=== PATIENT | female | born 1975 | race Caucasian/White ===

== ENCOUNTER 2022-08-15 08:29 | Emergency (ER) | payer OTHER, SELFPAY ==
[2022-08-15 08:40] VITALS: BP 115/67; PULSE 78; RESP 16; TEMP 36.9; O2SAT 100
--- NOTE | 2022-08-15 09:05 | ED.GENADULT ---
HPI - General Adult General Chief complaint: Upper Respiratory Infection Stated complaint: Congestion/Cough Source: patient Mode of arrival: ambulatory Limitations: no limitations History of Present Illness HPI narrative: Patient presents for evaluation of sick symptoms for last 3 days. Symptoms include clear rhinorrhea, sinus congestion, headache, ear pain and a mild cough. No fever, chills, nausea, vomiting, diarrhea, shortness of breath. She tried taking mucinex for her symptoms but it caused sleep disturbance. She tried sudafed but it only helps for about two hours. Her recently had similar symptoms but he did not go in for medical evaluation. He works as a teacher and pt states that several children at his school have been sick. Denies tobacco use. History of COVID infection x 4 episodes. Related Data Allergies Allergy/AdvReac Type Severity Reaction Status Date / Time No Known Allergies Allergy Verified 08/15/22 08:40 Review of Systems Review of Systems: CONSTITUTIONAL: Denies fever, chills, or sweats. EYES: Denies visual changes, redness, or discharge. ENT: Reports sinus congestion, clear rhinorrhea and ear discomfort. CARDIOVASCULAR: Denies chest pain, palpitations, or edema. RESPIRATORY:Reports cough. Denies dyspnea. GASTROINTESTINAL: Denies abdominal pain, nausea, vomiting, or diarrhea. GENITOURINARY: Denies dysuria or hematuria. SKIN: Denies rash or itching. MUSCULOSKELETAL: Denies back pain, joint pain, or myalgia. NEUROLOGIC: Reports headache. Denies numbness, dizziness, or weakness. PSYCHIATRIC: Denies anxiety or depression. [facility] Past Medical History Medical History No pertinent past medical history Surgical History Surgical History (Updated 08/15/22 @ 09:08 by JAX Aviles, ) No pertinent past surgical history Family History Family History Mother Family history non-contributory Social History Social History Smoking status: Never smoker Substance use: never Living arrangements: with family Gender identity (if verbalized by the patient): Female Sexual Orientation (if Verbalized by the Patient): Straight or Heterosexual Spiritual care concerns: No Exam Narrative: GENERAL: Well-appearing, well-nourished, and in no acute distress. HEAD: Normocephalic, atraumatic. EYES: PERRLA and EOMI. ENT: Nares clear, no rhinorrhea or epistaxis. Mucous membranes moist. Oropharynx without tonsillar hypertrophy exudate or other lesions. Bilateral TMs pearly thacker nonbulging NECK: Supple. No adenopathy or masses. No carotid bruits or JVD CHEST: Clear to auscultation. No respiratory distress. No wheezes rales or rhonchi HEART: Regular rate and rhythm. No murmur heard. Normal peripheral pulses. ABDOMEN: Soft, nontender, nondistended, normal active bowel sounds. EXTREMITIES: Normal range of motion. No edema. SKIN: Warm, dry, no rash. NEURO: No focal deficits. Alert and oriented x3. PSYCH: Normal mood and affect. Course Course Emergency Course: This is a 46-year-old female who presented for evaluation of upper respiratory symptoms. No adventitious lung sounds or fever to suggest pneumonia. No purulent drainage from the nares to suggest ABRS. Likely viral in origin. Will dc with tessalon. Flonase may help. She recently purchased flonase but has not started taking it yet. Follow up with primary provider. Go to ER for worsening symptoms. Pt in agreement with plan of care. Level of Care: Express Care Visit Vital Signs Vital signs: Vital Signs Temperature 36.9 C 08/15/22 08:40 Pulse Rate 78 08/15/22 08:40 Respiratory Rate 16 08/15/22 08:40 Blood Pressure 115/67 08/15/22 08:40 Pulse Oximetry 100 08/15/22 08:40 Oxygen Delivery Room Air 08/15/22 08:40 Temperature 36.9
== END 2022-08-15 09:07 | disposition home or self-care (01) ==
PROVIDERS: Emergency Provider Nurse Practitioner; PCP Emergency Medicine
DX: B34.9 Viral infection, unspecified (principal)
CPT/HCPCS: 99203; G0463

== ENCOUNTER 2023-08-01 15:35 | Emergency (ER) | payer OTHER, SELFPAY ==
--- NOTE | ~2023-08-01 | XR_ITS ---
XR lumbar spine 2-3V 08/01/2023 16:08 Indication: Back pain after sleeping on couch. Procedure: 3 views lumbar spine Comparison: No prior studies for comparison. Findings: Vertebral body heights are maintained. Mild levocurvature of the lumbar spine. No significa nt disc narrowing. No evidence for spondylolisthesis. No acute fracture or traumatic malalignment. Th ere is mild facet degenerative change at L4-5 and L5-S1. There are pelvic phleboliths. Sacral foramen are symmetric. Impression: 1: Mild lumbar spondylosis. Reviewed, dictated and finalized at location A. Impression: 1: Mild lumbar spondylosis.
[2023-08-01 15:41] VITALS: BP 118/74; PULSE 81; RESP 16; TEMP 37; O2SAT 100
--- NOTE | 2023-08-01 16:34 | ED.BACK ---
HPI - Back Pain/Injury General Chief Complaint: Back Pain/Injury Stated Complaint: back pain Time Seen by Provider: 08/01/23 16:34 Source: patient, RN notes reviewed and old records reviewed Mode of arrival: ambulatory Limitations: no limitations History of Present Illness HPI Narrative: 47 year old female who presents to [facility] care with complaints of lumbar back pain since Sunday morning when she woke up. Patient reports that she slept on couch Sunday night with elderly dog and woke up in pain. Patient reports that she has tried heating pad, cold therapy, tens unit, Ibuprofen and also Epsom salt without relief. Patient reports that pain is intense with movement especially to lower back with no radiation of pain down legs. Patient reports no difficulty passing urine or stools, denies any saddle paraesthesia. MD elicited complaint: back pain Onset (ago): day(s) (3) Pain scale (0-10): 10 Quality: sharp and aching Exacerbating factors: movement Treatments prior to arrival: cold therapy, heat therapy, NSAIDS and other (epsom salt, Tens unit) Related Data Allergies Allergy/AdvReac Type Severity Reaction Status Date / Time No Known Allergies Allergy Verified 08/15/22 08:40 Review of Systems Review of Systems: CONSTITUTIONAL: Denies fever, chills, or sweats. CARDIOVASCULAR: Denies chest pain, palpitations, or edema. RESPIRATORY: Denies cough or dyspnea. GASTROINTESTINAL: Denies abdominal pain, nausea, vomiting, or diarrhea. GENITOURINARY: Denies dysuria or hematuria. SKIN: Denies rash or itching. MUSCULOSKELETAL: Reports back pain in lower back increased intensity with movement, NEUROLOGIC: Denies headache, numbness, or weakness. All systems reviewed & are unremarkable except as noted in HPI and below PMFSH Past Medical History Medical History No pertinent past medical history Surgical History Surgical History No pertinent past surgical history Family History Family History Mother Family history non-contributory Social History Social History Smoking status: Never smoker Substance use: never Living arrangements: with family Gender identity (if verbalized by the patient): Female Sexual Orientation (if Verbalized by the Patient): Straight or Heterosexual Spiritual care concerns: No Comments At time of signature, agree with nursing past medical, surgical, social and family history. There is no relevant family history pertinent to the presenting complaint Exam Narrative: GENERAL: Well-appearing, well-nourished, and in no acute distress. HEAD: Normocephalic, atraumatic. EYES: PERRLA and EOMI. NECK: Supple. No lymphadenopathy. CHEST: Clear to auscultation. No respiratory distress. SAO2 100% on room air HEART: Regular rate and rhythm. Distal pulses palpable and equal, cap refill <3 seconds ABDOMEN: Soft, nontender, nondistended, normal active bowel sounds, no palpable or pulsatile masses. No CVA tenderness MUSCULOSKELETAL: Normal range of motion and strength in all extremities; 5/5 strength with hip flexion and extension, dorsiflexion and extension, knee flexion and extension, plantar flexion and extension. Normal sensation in dermatomal distributions with sensitivity to light touch and pain. No midline back tenderness to palpation. No paraspinal tenderness. Transfers from lying to sitting to standing with pain on movement. Tenderness over SI joint regions SKIN: Warm, dry, no rash. No ecchymosis, erythema, open wounds to back. NEURO: No focal deficits. Alert and oriented x3. Reflexes intact.Cautious painful gait. PSYCH: Normal mood and affect Course Course Emergency Course: Patient is aware of diagnosis, understands and agrees to treatment plan. Socrates blankenship
== END 2023-08-01 16:53 | disposition home or self-care (01) ==
PROVIDERS: Emergency Provider Registered Nurse
DX: M54.50 Low back pain, unspecified (principal); M47.816 Spondylosis without myelopathy or radiculopathy, lumbar region
CPT/HCPCS: 72100; 99213; G0463

== ENCOUNTER 2024-09-25 10:37 | Outpatient (CLI) | payer OTHER, SELFPAY ==
--- NOTE | ~2024-09-25 | MM_ITS ---
EXAMINATION: MM screening [facility] w marily HISTORY: Screening TECHNIQUE: Craniocaudal and mediolateral oblique 3-D tomosynthesis images were obtained and synthetic 2-D images were generated. CAD analysis was submitted and interpreted. COMPARISON: 06/05/2019 BREAST PARENCHYMAL COMPOSITION: Not dense: There are scattered areas of fibroglandular density. FINDINGS: The right breast is stable without evidence for malignancy. There are masses of the left br east in the upper outer quadrant, 2 of which are in the middle third obscured by fibroglandular tissu e and a third mass in the upper outer quadrant of the left breast near the pectoralis muscle. IMPRESSION: 1. Multiple new left breast masses centered in the upper outer quadrant of the left breast. 2. Additional mammographic views and possible breast ultrasound are recommended. BI-RADS Category 0: Incomplete: Needs additional imaging evaluation. Reviewed, dictated and finalized at location A. IMPRESSION: 1. Multiple new left breast masses centered in the upper outer quadrant of the left breast. 2. Additional mammographic views and possible breast ultrasound are recommended . BI-RADS Category 0: Incomplete: Needs additional imaging evaluation.
== END 2024-09-25 10:38 | disposition home or self-care (01) ==
PROVIDERS: PCP Obstetrics & Gynecology Gynecology; Visit Provider Obstetrics & Gynecology Gynecology
DX: Z12.31 Encounter for screening mammogram for malignant neoplasm of breast (principal); R92.8 Other abnormal and inconclusive findings on diagnostic imaging of breast
CPT/HCPCS: 77063; 77067

== ENCOUNTER 2024-10-17 08:27 | Outpatient (CLI) | payer OTHER, SELFPAY ==
--- NOTE | ~2024-10-17 | MMUS_ITS ---
EXAMINATION: MM diagnostic [facility] LT w marily, US breast LT complete HISTORY: TECHNIQUE: Additional 3-D tomosynthesis images of the left breast were performed and synthetic 2-D im ages were generated. CAD analysis was submitted and interpreted. High resolution complete left breast ultrasound was performed. COMPARISON: Comparison to multiple prior studies sequentially, with oldest reviewed study dated 06/05. BREAST PARENCHYMAL COMPOSITION: Dense: The breasts are heterogeneously dense, which may obscure small masses FINDINGS: MAMMOGRAPHIC FINDINGS: There are partially circumscribed masses in the upper outer quadrants of the left breast one of which is in the posterior third in the other in the middle third. No suspicious calcifications or architec tural distortion. ULTRASOUND: Complete US of all 4 quadrants of the left breast/s and retroareolar region was reviewed. At 1:00, 10 cm from the nipple there is a 1.2 cm cyst. At 1:00, 3 cm from the nipple there is a 1.3 cm cyst. At 1:00, 4 cm from the nipple there is a hypoechoic 3 mm mass with slightly irregular lateral margins. N o internal vascularity or posterior features. There is a second oval 3 mm mass at 1:00, 4 cm from the nipple which appears smoothly marginated without posterior features or internal vascularity, likely benign. At 10:00, 6 cm from the nipple there is a septated 11 mm cyst. IMPRESSION: 1. Suspicious for millimeter left breast mass at 1:00, 4 cm from the nipple with slightly irregular l ateral margins 2. Ultrasound-guided left breast biopsy recommended. BI-RADS category 4, suspicious findings. Reviewed, dictated and finalized at location A. IMPRESSION: 1. Suspicious for millimeter left breast mass at 1:00, 4 cm from the nipple wit h slightly irregular lateral margins 2. Ultrasound-guided left breast biopsy recommended. BI-RADS category 4, suspicious findings.
== END 2024-10-17 08:28 | disposition home or self-care (01) ==
LOC: MICIMG 08:28
PROVIDERS: PCP Obstetrics & Gynecology Gynecology; Visit Provider Obstetrics & Gynecology Gynecology
DX: R92.8 Other abnormal and inconclusive findings on diagnostic imaging of breast (principal)
CPT/HCPCS: 76641; 77061; 77065; G0279